=== PATIENT | female | born 1955 | race Caucasian/White ===

== ENCOUNTER → 2024-02-26 | Outpatient (CLI) | payer MEDICARE, MEDICAID ==
[~2024-02-26] MED LIST: AMLO10TA80 PO; ASPI-1497 PO; ATOR-2 PO; CALC-38 PO; CLOP75TA33 PO; ERTU5TAB PO; FLUO10TA34 PO; GLIM4TAB36 PO; IBAN150T21 PO; ISOS30TA91 PO; METF-416 PO; METO-385 PO; OMEP40CA20 PO; TOPUD MT
== END | disposition home or self-care (01) ==
LOC: CARD 09:13
PROVIDERS: ATTEND Internal Medicine
DX: I08.0 Rheumatic disorders of both mitral and aortic valves (principal); R07.9 Chest pain, unspecified; I25.10 Atherosclerotic heart disease of native coronary artery without angina pectoris
CPT/HCPCS: 93306